=== PATIENT | female | born 2000 | race Two or more races ===

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

== ENCOUNTER 2023-05-12 09:10 | Emergency (ER) | payer OTHER ==
[~2023-05-12] VITALS: Ht 175.3 cm; Wt 115.7 kg
[2023-05-12 12:41] LABS: ALBUMIN 3.7 gm/dL (3.4-5.0); BILIRUBIN TOTAL 0.36 mg/dL (0.3-1.2); CALCIUM 9.8 mg/dL (8.5-10.1); CREATININE SERUM 0.69 mg/dL (0.55-1.02); GFR 108.47; GLOBULINA 4.6 G/DL (2.4-3.5); POTASSIUM 4.35 mEq/L (3.5-5.1); TOTAL PROTEIN 8.3 gm/dL (6.4-8.2)
[2023-05-12 13:13] LABS: HEMATOCRIT 42.9 % (36.0-45.00); MEAN CELL VOLUME 85.3 fL (80.00-100.00); MEAN CORPUSCULAR HEMOGLOBIN 27.9 pg (27.00-32.0); MEAN CORPUSCULAR HGB CONC 32.7 g/dl (32.0-36.0); PLATELET COUNT 278 K/uL (150-450); RED BLOOD COUNT 5.03 M/uL (4.00-6.00); RED CELL DISTRIBUTION WIDTH 13.3 % (11.5-14.5)
[2023-05-12] MEDS ORDERED: ALBUTEROL2.5 MG/3 M IH (14:10)
[2023-05-12] MEDS ORDERED: ZITHROMAX200 MG PO (14:10)
[2023-05-12] MEDS ORDERED: BENZONATATE100 MG PO (14:10)
[2023-05-12] MEDS ORDERED: DEXAMETHASONE6 MG PO (14:10)
== END 2023-05-12 14:46 | disposition home or self-care (01) ==
LOC: EMR PED 09:11 → ER 09:11 → EMR PED 09:53
PROVIDERS: Pediatrics
DX: R50.9 Fever, unspecified (principal); J98.01 Acute bronchospasm; R05.8 Other specified cough

== ENCOUNTER 2023-06-14 08:54 | Emergency (ER) | payer OTHER ==
[~2023-06-14] VITALS: Ht 175.3 cm; Wt 117.9 kg
[~2023-06-14 08:54] MED LIST changes: +ALBUTEROL2.5 MG/3 M IH; +BENZONATATE100 MG PO; +DEXAMETHASONE6 MG PO; +ZITHROMAX200 MG PO
[2023-06-14 12:16] LABS: PH,URINE 5.5 (5.0-8.0); URINE APPEARANCE Clear; URINE BILIRRUBIN Negative (NEGATIVE); URINE BLOOD Negative; URINE COLOR Yellow; URINE GLUCOSE Negative (NEGATIVE); URINE LEUKOCYTE Small; URINE NITRATE Negative; URINE PROTEIN Negative (NEGATIVE)
[2023-06-14 12:20] LABS: URINE BACTERIA 1519.5 uL (0.0-1933); URINE EPITHELIAL CELLS 32.1 uL (0.0-38.8); URINE RBC 20.9 uL (0.0-20.8); URINE WBC 89.1 uL (0.0-23.2)
[2023-06-14 13:42] LABS: URINE CRYSTALS MODERATE /HPF
[2023-06-14] MEDS ORDERED: CIPRO500 MG PO (16:45)
[2023-06-14] MEDS ORDERED: CYCLOBENZAPRINE10 MG PO (16:45)
[2023-06-14] MEDS ORDERED: DICLOFENAC POTA50 MG PO (16:45)
== END 2023-06-14 17:04 | disposition home or self-care (01) ==
LOC: ER 08:55
PROVIDERS: General Practice
DX: T14.8XXA Other injury of unspecified body region, initial encounter (principal); V49.9XXA Car occupant (driver) (passenger) injured in unspecified traffic accident, initial encounter; Y93.9 Activity, unspecified; Y92.413 State road as the place of occurrence of the external cause; Y99.9 Unspecified external cause status

== ENCOUNTER 2023-07-06 07:02 | Emergency (ER) | payer OTHER ==
[~2023-07-06] VITALS: Ht 172.7 cm; Wt 117.9 kg
[~2023-07-06 07:02] MED LIST changes: +CIPRO500 MG PO; +CYCLOBENZAPRINE10 MG PO; +DICLOFENAC POTA50 MG PO
[2023-07-06 09:35] LABS: URINE APPEARANCE Clear; URINE BILIRRUBIN Negative (NEGATIVE); URINE BLOOD Negative; URINE COLOR Yellow; URINE GLUCOSE Negative (NEGATIVE); URINE LEUKOCYTE Moderate; URINE NITRATE Negative; URINE PROTEIN Trace (NEGATIVE)
[2023-07-06 09:39] LABS: URINE BACTERIA 991.6 uL (0.0-1933); URINE EPITHELIAL CELLS 50.3 uL (0.0-38.8); URINE RBC 12.7 uL (0.0-20.8); URINE WBC 242.8 uL (0.0-23.2)
[2023-07-06] MEDS ORDERED: METRONIDAZOLE500 MG PO (10:06)
[2023-07-06] MEDS ORDERED: VALTREX1000 MG PO (10:06)
[2023-07-06] MEDS ORDERED: PEPCID AC20 MG PO (10:06)
== END 2023-07-06 11:08 | disposition home or self-care (01) ==
LOC: ER → EDBD 07:02 → ER 07:02
PROVIDERS: General Practice
DX: N89.8 Other specified noninflammatory disorders of vagina (principal)

== ENCOUNTER 2023-08-05 04:03 | Emergency (ER) | payer OTHER ==
[~2023-08-05] VITALS: Ht 172.7 cm; Wt 111.1 kg
[~2023-08-05 04:03] MED LIST changes: +METRONIDAZOLE500 MG PO; +PEPCID AC20 MG PO; +VALTREX1000 MG PO
== END 2023-08-05 05:10 | disposition home or self-care (01) ==
LOC: ER 04:03
DX: M25.562 Pain in left knee (principal)

== ENCOUNTER 2024-02-10 21:31 | Emergency (ER) | payer OTHER ==
[~2024-02-10] VITALS: Ht 175.3 cm; Wt 117.9 kg
[2024-02-10] MEDS ORDERED: TRAMADOL HCL 50 MG TABLET PO STA (22:36)
[2024-02-10] MEDS ORDERED: CLINDAMYCIN PHOSPHATE 150 MG/ML (600mg) IM STA (22:36)
[2024-02-10] MEDS ORDERED: KETOROLAC TROMETHAMINE 30 MG VIAL IM STA (22:36)
[2024-02-10] MEDS ORDERED: KETOROLAC TROMETHAMINE 30 MG VIAL ONE (22:42)
[2024-02-10] MEDS ORDERED: CLINDAMYCIN PHOSPHATE 150 MG/ML (300mg) ONE (22:42)
== END 2024-02-10 22:50 | disposition home or self-care (01) ==
LOC: ER 21:33
DX: K05.10 Chronic gingivitis, plaque induced (principal); K08.89 Other specified disorders of teeth and supporting structures

== ENCOUNTER → 2025-07-09 | Emergency (ER) | payer OTHER ==
[~2025-07-09] VITALS: Ht 170.2 cm; Wt 123.4 kg
[~2025-07-09] MED LIST changes: +CEPHALEXIN500 M1 PO; +PRENATA CHEWAB1 EACH
[2025-07-09 19:50] VITALS: BP 129/91; O2SAT 99
[2025-07-09 23:43] LABS: BASO % 0.2 % (0.1-1.2); EOS # 0.06 (0.04-0.54); EOS % 0.7 % (0.7-7.0); LYMPH # 2.40 (1.18-3.74); LYMPH % 29.2 % (19.3-53.1); MEAN PLATELET VOLUME 11.40 fl (9.4-12.4); MONO # 0.55 (0.24-0.82); MONO % 6.7 % (4.7-12.5); NEUT # 5.16 (1.56-6.13); NEUT % 63.0 % (34.0-71.1); RED CELL DISTRIBUTION WIDTH 13.3 % (11.6-14.4)
[2025-07-10 00:26] LABS: URINE APPEARANCE Cloudy; URINE BILIRRUBIN Negative (NEGATIVE); URINE BLOOD Moderate; URINE COLOR Dark Yellow; URINE GLUCOSE Negative (NEGATIVE); URINE KETONE Trace (NEGATIVE); URINE LEUKOCYTE Large; URINE NITRATE Negative; URINE PROTEIN 30 (NEGATIVE); URINE UROBILINOGEN 1.0 E.U./dl
[2025-07-10 00:29] LABS: URINE BACTERIA 1562.5 uL (0.0-1933); URINE EPITHELIAL CELLS 24.3 uL (0.0-38.8); URINE RBC 14.0 uL (0.0-20.8); URINE WBC 1205.7 uL (0.0-23.2)
[2025-07-10 00:34] LABS: ALT/SGPT 68.0 U/L (12-78); AST/SGOT 40.0 U/L (15-37); BILIRUBIN TOTAL 0.25 mg/dL (0.3-1.2); BUN CREA RATIO 12.0 (7.0-25.0); CREATININE SERUM 0.51 mg/dL (0.55-1.02); GFR 149.44; GLOBULINA 3.7 G/DL (2.4-3.5); GLUCOSE FASTING 81.0 mg/dL (65-100); OSMOLALITY SERUM 278.0 MOSM/KG (275-295)
[2025-07-10 01:06] LABS: URINE CAST 0.70 uL (0.0-1.40); URINE YEAST FEW /hpf
== END | disposition left against medical advice (07) ==
LOC: ER 19:40
PROVIDERS: Preventive Medicine Public Health & General Preventive Medicine
DX: O98.811 Other maternal infectious and parasitic diseases complicating pregnancy, first trimester (principal); O20.8 Other hemorrhage in early pregnancy; O23.41 Unspecified infection of urinary tract in pregnancy, first trimester; N39.0 Urinary tract infection, site not specified; B37.31 Acute candidiasis of vulva and vagina; Z3A.12 12 weeks gestation of pregnancy